=== PATIENT | female | born 2000 | race Caucasian/White ===

== ENCOUNTER 2018-10-31 17:57 | Emergency (ER) | payer SELFPAY ==
[2018-10-31 18:01] VITALS: BP 119/79; PULSE 70; TEMP 98
[2018-10-31 19:11] LABS: COLLECTION METHOD CLEAN CATCH
[2018-10-31 19:17] LABS: MUCOUS Present /lpf; PH 6 (5-8); SQUAMOUS EPITHELIAL 0-2 /hpf; URINE APPEARANCE Clear; URINE BACTERIA Rare /hpf; URINE BILIRUBIN Negative (NEGATIVE); URINE BLOOD 1+ (NEGATIVE); URINE COLOR Amber; URINE GLUCOSE Negative (NEGATIVE); URINE KETONE Negative (NEGATIVE); URINE LEUKOCYTE ESTERASE Negative (NEGATIVE); URINE NITRATE Positive (NEGATIVE); URINE PROTEIN(semi-quant) Negative (NEGATIVE)
[2018-10-31] MEDS ORDERED: OMNICEF 300MG300 MG PO (19:27)
== END 2018-10-31 20:27 | disposition home or self-care (01) ==
LOC: COL.ER 17:57
PROVIDERS: Emergency Medicine
DX: N39.0 Urinary tract infection, site not specified (principal)
CPT/HCPCS: J0696

== ENCOUNTER 2018-11-21 16:14 | Emergency (ER) | payer SELFPAY ==
[~2018-11-21] VITALS: Ht 157.5 cm; Wt 75.3 kg
[~2018-11-21 16:14] MED LIST: OMNICEF 300MG300 MG PO
[2018-11-21 16:21] VITALS: BP 124/74; TEMP 98.2
[2018-11-21 17:09] LABS: BASO % 0.2 % (0.0-2.0); EOS # 0.1 (0.0-0.7); EOS % 1.2 % (0-4.0); GRAN # 6.3 (1.4-6.5); GRAN % 71.1 % (42.2-75.2); HEMATOCRIT 42.5 % (35.0-45.0); HEMOGLOBIN 13.8 g/dl (12.0-15.0); LYMPH # 1.8 (1.2-3.4); LYMPH % 20.8 % (20.0-51.0); MEAN CELL VOLUME 96 fl (80.0-95.0); MEAN CORPUSCULAR HEMOGLOBIN 31 pg (26.0-32.0); MEAN CORPUSCULAR HGB CONC 33 g/dl (33.0-37.0); MEAN PLATELET VOLUME 12.2 fl (7.4-10.4); MONO # 0.6 (0.1-0.6); MONO % 6.5 % (1.7-9.3); PLATELET COUNT 209 K/mm3 (130-400); RED BLOOD COUNT 4.42 M/mm3 (4.10-5.30); REDCELL DISTRIBUTION WIDTH-CV 12.5 % (11.5-14.5)
[2018-11-21 17:23] LABS: ALBUMIN 4.3 gm/dL (3.5-5.0); BILIRUBIN,TOTAL 0.3 mg/dL (0.0-1.0); C-REACTIVE PROTEIN 0.7 mg/dL (0.0-0.9); CALCIUM 9.5 mg/dL (8.4-10.2); CREATININE, serum 0.7 (0.52-1.25); POTASSIUM 3.5 mmol/L (3.4-5.0); TOTAL PROTEIN 7.1 gm/dL (6.4-8.2)
[2018-11-21] MEDS ORDERED: MEDROL 4MG DOSPA4 MG PO (18:11)
[2018-11-21] MEDS ORDERED: ATIVAN 0.50.5 MG/TAB PO (18:20)
[2018-11-21 18:31] VITALS: PULSE 92
== END 2018-11-21 18:32 | disposition home or self-care (01) ==
LOC: COL.ER 16:14
PROVIDERS: Emergency Medicine
DX: R20.2 Paresthesia of skin (principal); M62.838 Other muscle spasm

== ENCOUNTER 2019-03-18 01:23 | Emergency (ER) | payer MEDICAID ==
[~2019-03-18] VITALS: Ht 152.4 cm; Wt 81.8 kg
[~2019-03-18 01:23] MED LIST changes: +ATIVAN 0.50.5 MG/TAB PO; +MEDROL 4MG DOSPA4 MG PO
[2019-03-18 01:30] VITALS: BP 103/66
[2019-03-18] MEDS ORDERED: PRENATAL TABLET PO (01:32)
[2019-03-18 02:02] LABS: BASO % 0.2 % (0.0-2.0); EOS # 0.2 (0.0-0.7); EOS % 2.2 % (0-4.0); GRAN # 7.3 (1.4-6.5); GRAN % 70.1 % (42.2-75.2); HEMATOCRIT 39.8 % (35.0-45.0); HEMOGLOBIN 13.4 g/dl (12.0-15.0); LYMPH # 2.1 (1.2-3.4); LYMPH % 20.2 % (20.0-51.0); MEAN CELL VOLUME 94 fl (80.0-95.0); MEAN CORPUSCULAR HEMOGLOBIN 32 pg (26.0-32.0); MEAN CORPUSCULAR HGB CONC 34 g/dl (33.0-37.0); MEAN PLATELET VOLUME 11.4 fl (7.4-10.4); MONO # 0.7 (0.1-0.6); MONO % 6.9 % (1.7-9.3); PLATELET COUNT 270 K/mm3 (130-400); RED BLOOD COUNT 4.22 M/mm3 (4.10-5.30); REDCELL DISTRIBUTION WIDTH-CV 12.5 % (11.5-14.5)
[2019-03-18 02:20] LABS: ALBUMIN 4.5 gm/dL (3.5-5.0); BILIRUBIN,TOTAL 0.1 mg/dL (0.0-1.0); CALCIUM 9.4 mg/dL (8.4-10.2); CREATININE, serum 0.51 (0.52-1.25); POTASSIUM 3.8 mmol/L (3.4-5.0); TOTAL PROTEIN 7.5 gm/dL (6.4-8.2)
[2019-03-18 02:35] LABS: COLLECTION METHOD CLEAN CATCH
[2019-03-18 02:44] LABS: AMORPHOUS CRYSTAL Present /uL; PH 7 (5-8); SQUAMOUS EPITHELIAL 0-2 /hpf; URINE APPEARANCE Hazy; URINE BACTERIA None Seen /hpf; URINE BILIRUBIN Negative (NEGATIVE); URINE BLOOD Negative (NEGATIVE); URINE COLOR Yellow; URINE GLUCOSE Negative (NEGATIVE); URINE KETONE Negative (NEGATIVE); URINE LEUKOCYTE ESTERASE Negative (NEGATIVE); URINE NITRATE Negative (NEGATIVE); URINE PROTEIN(semi-quant) Negative (NEGATIVE); URINE RBC 0-2 /hpf; URINE UROBILINOGEN Negative (NEGATIVE)
[2019-03-18 04:45] VITALS: PULSE 73
== END 2019-03-18 04:45 | disposition home or self-care (01) ==
LOC: COL.ER 01:23
PROVIDERS: Physician Assistant
DX: O20.0 Threatened abortion (principal); O99.331 Smoking (tobacco) complicating pregnancy, first trimester; F17.210 Nicotine dependence, cigarettes, uncomplicated; Z3A.01 Less than 8 weeks gestation of pregnancy

== ENCOUNTER 2019-03-26 00:35 | Emergency (ER) | payer MEDICAID ==
[~2019-03-26] VITALS: Ht 154.9 cm; Wt 76.0 kg
[~2019-03-26 00:35] MED LIST changes: +PRENATAL TABLET PO
[2019-03-26 00:39] VITALS: BP 125/79; PULSE 87; TEMP 98.9
[2019-03-26 01:39] LABS: BASO % 0.2 % (0.0-2.0); EOS # 0.2 (0.0-0.7); EOS % 2.4 % (0-4.0); GRAN % 71.3 % (42.2-75.2); HEMATOCRIT 41.6 % (35.0-45.0); HEMOGLOBIN 13.6 g/dl (12.0-15.0); LYMPH % 19.8 % (20.0-51.0); MEAN CELL VOLUME 96 fl (80.0-95.0); MEAN CORPUSCULAR HEMOGLOBIN 32 pg (26.0-32.0); MEAN CORPUSCULAR HGB CONC 33 g/dl (33.0-37.0); MEAN PLATELET VOLUME 11.3 fl (7.4-10.4); MONO # 0.6 (0.1-0.6); PLATELET COUNT 228 K/mm3 (130-400); RED BLOOD COUNT 4.32 M/mm3 (4.10-5.30); REDCELL DISTRIBUTION WIDTH-CV 12.3 % (11.5-14.5)
[2019-03-26 02:25] LABS: COLLECTION METHOD CLEAN CATCH
[2019-03-26 02:30] LABS: PH 6 (5-8); SQUAMOUS EPITHELIAL 0-2 /hpf; URINE APPEARANCE Clear; URINE BACTERIA None Seen /hpf; URINE BILIRUBIN Negative (NEGATIVE); URINE BLOOD Negative (NEGATIVE); URINE COLOR Yellow; URINE GLUCOSE Negative (NEGATIVE); URINE KETONE Negative (NEGATIVE); URINE LEUKOCYTE ESTERASE Negative (NEGATIVE); URINE NITRATE Negative (NEGATIVE); URINE PROTEIN(semi-quant) Negative (NEGATIVE); URINE RBC 0-2 /hpf; URINE UROBILINOGEN Negative (NEGATIVE)
== END 2019-03-26 03:40 | disposition home or self-care (01) ==
LOC: COL.ER 00:35
PROVIDERS: Nurse Practitioner
DX: O20.0 Threatened abortion (principal); Z87.59 Personal history of other complications of pregnancy, childbirth and the puerperium

== ENCOUNTER 2019-03-27 19:29 | Emergency (ER) | payer MEDICAID ==
[~2019-03-27] VITALS: Wt 73.2 kg
[2019-03-27 20:31] LABS: BASO % 0.1 % (0.0-2.0); EOS # 0.3 (0.0-0.7); EOS % 2.7 % (0-4.0); GRAN # 8.1 (1.4-6.5); GRAN % 70.9 % (42.2-75.2); HEMATOCRIT 42.2 % (35.0-45.0); HEMOGLOBIN 13.9 g/dl (12.0-15.0); LYMPH # 2.3 (1.2-3.4); LYMPH % 20.1 % (20.0-51.0); MEAN CELL VOLUME 95 fl (80.0-95.0); MEAN CORPUSCULAR HEMOGLOBIN 31 pg (26.0-32.0); MEAN CORPUSCULAR HGB CONC 33 g/dl (33.0-37.0); MEAN PLATELET VOLUME 11.6 fl (7.4-10.4); MONO # 0.7 (0.1-0.6); MONO % 5.9 % (1.7-9.3); PLATELET COUNT 235 K/mm3 (130-400); RED BLOOD COUNT 4.43 M/mm3 (4.10-5.30); REDCELL DISTRIBUTION WIDTH-CV 12.1 % (11.5-14.5)
[2019-03-27 21:38] VITALS: BP 128/79; PULSE 76; TEMP 98.4
== END 2019-03-27 21:45 | disposition home or self-care (01) ==
LOC: COL.ER 19:29
PROVIDERS: Emergency Medicine
DX: O03.9 Complete or unspecified spontaneous abortion without complication (principal); Z87.891 Personal history of nicotine dependence

== ENCOUNTER 2019-03-28 00:10 | Emergency (ER) | payer MEDICAID ==
[2019-03-28 00:19] VITALS: TEMP 98.2
[2019-03-28 01:23] VITALS: BP 120/82; PULSE 67
== END 2019-03-28 01:23 | disposition home or self-care (01) ==
LOC: COL.ER 00:10
DX: O03.4 Incomplete spontaneous abortion without complication (principal)

== ENCOUNTER 2021-03-26 08:50 | Outpatient (CLI) | payer MEDICAID ==
[2021-03-26] VITALS (7 sets, daily range): BP systolic 97–139; BP diastolic 51–86; PULSE 78–92; TEMP 97.7–98.2
[~2021-03-26] VITALS: Ht 154.9 cm; Wt 92.3 kg
--- NOTE | 2021-03-26 09:00 | NUR ---
0900-Patient arrives on unit via wheelchair with complaint of contractions since 0500. Denies vaginal bleeding or decreased movement. Does report some type of fluid like discharge. Friend and wildlife removal specialist with patient. Amnitest neg and SVE 3 and posterior. Updated on plan of care and Assessment complete. 914-Dr. Jose on unit. Reviewed FHR monitor with MD and orders for labor check recieved. 1021-Patient now 2 with bloody show on exam glove. Dr. Jose notified. Orders to have patient ambualte and recheck in one hour. Patient off EFM and ambulates hallway.
--- NOTE | 2021-03-26 11:28 | NUR ---
1128-Patient back on EFM. Exam unchanged. Updated MD and recieved orders to allow patient to eat and recheck in 2 hours or sooner if needed.
--- NOTE | 2021-03-26 15:34 | NUR ---
1258-Off EFM ambulates in room. 1354-Back on EFM. SVE unchanged. Updated Dr. Jose and discharge orders recieved. 1422-Reviewed dishcarge instructions. OFF EFM. 1440-Ambulatory off unit with significant other and friend.
== END 2021-03-26 14:40 | disposition home or self-care (01) ==
LOC: LDRO 08:50 → LDR 09:27 → LDRO 14:40 → LDR 14:40
DX: O62.9 Abnormality of forces of labor, unspecified (principal); Z3A.37 37 weeks gestation of pregnancy
CPT/HCPCS: OP

== ENCOUNTER 2021-03-26 22:53 | Outpatient (CLI) | payer MEDICAID ==
[~2021-03-26] VITALS: Ht 154.9 cm; Wt 92.3 kg
--- NOTE | 2021-03-26 23:08 | NUR ---
EFM AND TOCO APPLIED AT THIS TIME
[2021-03-26 23:30] VITALS: BP 133/71; PULSE 91; TEMP 98.4
--- NOTE | 2021-03-26 23:55 | NUR ---
PLAN OF CARE DISCUSSED AND PT VERVALIZED AN UNDERSTANDING. PT RESTING IN BED, ICE WATER GIVEN, PT DENIES FURTHER NEEDS. CALL LIGHT LEEROY REACH
[2021-03-27] VITALS: BP 132/82; PULSE 100
--- NOTE | 2021-03-27 00:20 | NUR ---
VISIBLE BREAKS ARE OBSERVED IN FHT TRACING. RN IS AT BEDSIDE TO ADJUST EFM AFTER MATERNAL POSITION CHANGE. MATERAL COINCIDENCE IS OBSERVED DURING MATERNAL POSITION CHANGE PER PULSE OX.
[2021-03-27 00:45] VITALS: BP 139/87; PULSE 75
--- NOTE | 2021-03-27 00:50 | NUR ---
DISCHARGE INSTRUCTIONS REVIEWED WITH EARLY LABOR INSTRUCTIONS AN PT VERBALIZED AN UNDERSTANDING. PT DENIES FURTHER QUESTIONS AT THIS TIME. PT GIVEN COPY OF DISCHARGE INSTRUCTIONS
--- NOTE | 2021-03-27 00:55 | NUR ---
PT DISCHARGED TO HOME IN STABLE UNDELIVERED CONDITION. PT AMBULATED OFF UNIT WITH FRIEND AT THIS TIME.
== END 2021-03-27 00:55 | disposition home or self-care (01) ==
LOC: LDR 22:53 → LDRO 22:53 → LDR 23:14 → LDRO 03-27 00:55
DX: O62.9 Abnormality of forces of labor, unspecified (principal); Z3A.39 39 weeks gestation of pregnancy
CPT/HCPCS: OP

== ENCOUNTER 2021-03-27 13:23 | Inpatient (IN) | payer MEDICAID ==
[2021-03-27] VITALS (25 sets, daily range): BP systolic 109–165; BP diastolic 56–95; PULSE 16–131; TEMP 97.7–99.7
[~2021-03-27] VITALS: Ht 154.9 cm; Wt 92.3 kg
--- NOTE | 2021-03-27 13:25 | NUR ---
1325-39.2 week G3L0 Ambulatory to LR 4 with complaint of contractions. She was seen on unit twice in the last 24 hours for a labor check. She says she tried tylenol and rest and they picked up from every 10-12 min to 5-6 min through the night. She reports good movement and denies LOF. Patient assisted into gown and social worker aide line called for admission assistance. Her cervix was checked /-2. GILBERTO.
[2021-03-27 15:28] LABS: BASO % 0.3 % (0.0-2.0); EOS % 0.2 % (0-4.0); GRAN # 10.1 K/mm3 (1.4-6.5); GRAN % 82.1 % (42.2-75.2); HEMATOCRIT 44.8 % (37.0-47.0); HEMOGLOBIN 14.8 g/dl (12.5-16.0); LYMPH # 1.5 K/mm3 (1.2-3.4); LYMPH % 12.2 % (20.0-51.0); MEAN CELL VOLUME 94 fl (80.0-100.0); MEAN CORPUSCULAR HEMOGLOBIN 31 pg (27.0-31.0); MEAN CORPUSCULAR HGB CONC 33 g/dl (33.0-37.0); MONO # 0.6 K/mm3 (0.1-0.6); MONO % 4.9 % (1.7-9.3); PLATELET COUNT 209 K/mm3 (130-400); RED BLOOD COUNT 4.77 M/mm3 (4.10-5.30); REDCELL DISTRIBUTION WIDTH-CV 14.3 % (11.5-14.5)
[2021-03-27 15:43] LABS: ALBUMIN 3.1 gm/dL (3.5-5.0); BILIRUBIN,TOTAL 0.6 mg/dL (0.2-1.2); CALCIUM 9.5 mg/dL (8.4-10.2); CREATININE, serum 0.62 mg/dL (0.57-1.11); TOTAL PROTEIN 7.3 gm/dL (6.2-8.1)
--- NOTE | 2021-03-27 16:05 | NUR ---
1605-Dr. Hartley on unit. In to see patient and review plan of care. SVE /-1 per MD. AROM clear fluid.
--- NOTE | 2021-03-27 16:30 | NUR ---
1630-FHR decels down to 80 bpm. Repositoned LL and cut pitocin down to 2mu. 1650-Dr. Hartley notified of deep decels and decrease in pitocin. reviews FHR monitor and gives order to leave pitocin off. 1705-FSE placed by this RN. 1730-Pitocin resumed at 2mu
--- NOTE | 2021-03-27 18:48 | NUR ---
174-Intermittent late decel, Repositoned RL with peanut ball. 1804-Dr. Hartley updated on FHR monitor. Order to continue to increase pitocin, see MD notification. 1814-Reported off to SABINO Garcia
--- NOTE | 2021-03-27 19:48 | NUR ---
FHT: 191: DIFFICULTY TRACING CTX; VARIABLE NOTED. UNSURE IF W/ CTX OR NOT.
--- NOTE | 2021-03-27 20:14 | NUR ---
2003: RN CALLED DR. FRANCOIS TO UPDATE HIM (SEE PHYSICIAN NOTIFICATION) DR. FRANCOIS AWARE OF FHT STRIP, ACTIVELY PULLING UP ON COMPUTER AT HOME WITH RN ON PHONE. CONTINUE WITH CURRENT PLAN PER DR. FRANCOIS.
--- NOTE | 2021-03-27 20:57 | NUR ---
2044: RN TO LUNCH. GAVE REPORT TO SABINO SALOMON. 2056: RN RESUMES CARE OF PT
--- NOTE | 2021-03-27 22:43 | NUR ---
REPORT GIVEN TO SABINO MONTEZ. HER TO START PUSHING WITH PT PER DR. FRANCOIS
--- NOTE | 2021-03-27 22:50 | NUR ---
2250- THIS RN TO LABOR TO TAKE OVER CARE OF LABORING PATIENT. THIS RN TO BEDSIDE TO DISCUSS WITH PATIENT, WITH THE HELP OF LEARNING DESIGN SPECIALIST, THAT WE ARE GOING TO START PUSHING AND WHAT THAT LOOKS LIKE. PATIENT VERBALIZED UNDERSTANDING THROUGH LEARNING DESIGN SPECIALIST. 2258- FIRST PRACTICE PUSH WITH PATIENT. THIS RN REMAINS AT BEDSIDE DURING THIS TIME AND PUSHING WITH PATIENTS. 2300- PROVIDER GAVE VERBAL ORDER TO START PITOCIN DURING PUSHING CONTRACTIONS AT SPACED OUT. 2302- PITOCIN TURNED ON AT 2MU/HR. 2313- ROGERS REMOVED WITH 800ML OF OUTPUT NOTED. 2330- THIS RN CALLED FOR PROVIDER AND NURSERY STAFF TO COME INTO ROOM FOR DELIVERY. 2332- PROVIDER AT BEDSIDE AND ROOM BEING SET UP FOR DELIVER. NURSERY AT BEDSIDE AT THIS TIME TOO. 2337- OF VIABLE MALE . PLACED TO MOTHERS ABDOMEN WHERE NURSERY NURSE ASSUMES CARE AT THIS TIME. PITOCIN TURNED OFF AT THIS TIME. 2340- OF PLACENTA. FUNDUS MASSAGED TO FIRM BY THIS RN WITH SMALL AMOUNT OF LOCHIA AND CLOTS NOTED. PITOCIN TURNED ON PER PROTOCOL AT 333ML/HR. PROVIDER NOTED 2ND DEGREE TEAR AND REPAIRED TEAR. EBL NOTED TO BE 200 BY PROVIDER 2350- REPAIRS FINISHED, FUNDUS FIRM, VITALS STABLE. PATIENT AND ROOM CLEANED UP AND PUT BACK TOGETHER. RECOVERY STARTED.
[2021-03-28] VITALS (11 sets, daily range): BP systolic 105–150; BP diastolic 55–85; PULSE 73–120; TEMP 97.8–98.9
--- NOTE | 2021-03-28 08:03 | NUR ---
0730 PATIENT CALLED OUT FOR ASSISTANCE TO BATHROOM. PT AMBULATED INDEPENDENTLY TO TOILET. PAD SATURATED. PATIENT UNABLE TO URINATE AT THIS TIME. PERICARE DONE. NEW MESH UNDERWEAR, PAD WITH ICE PACK ON. PATIENT AMBULATED BACK TO BED. VSS. FUNDUS FIRM. SMALL AMOUNT OF FLOW WHEN PUSHING ON FUNDUS. NO CLOTS NOTED. PATIENT DENIES HEADACHES, DIZZINESS. ENCOURAGED PATIENT TO DRINK FLUIDS. WATER JUG REFRESHED. APPLE JUICE PROVIDED. HELPED PATIENT AND FOB ORDER BREAKFAST. 0750 MOTHER REQUESTING A BOTTLE FOR INFANT STATING "NO MILK". DISCUSSED WITH MOTHER THE IMPORATANCE OF FEEDING BABY AT THE BREAST BEFORE OFFERING FORMULA TO HELP WITH MILK PRODUCTION. MOTHER AGREES WITH PLAN. RN ASSISTS TO LATCH ON L BREAST. GOOD LATCH NOTED. MOTHER INSTRUCTED TO USE CALL LIGHT TO ASK FOR HELP IF NEEDED.
--- NOTE | 2021-03-28 09:24 | NUR ---
0830 PT CALLED OUT TO HAVE RN CHECK LEFT SIDE LATCH FOR BABY . MOTRIN AND STOOL SOFTNER GIVEN AT THIS TIME. ONLINE PROJECT MANAGER USED FOR MEDICATION EDUCATION. EDUCATION ON APPROPRIATE AMOUNT OF VAGINAL BLEEDING AND CLOT SIZES. 0845 PT NOTIFIES NURSE AT THIS TIME BLEEDING IS HAPPENING. RN CHECKED PRESSED ON FUNDUS AT THIS TIME AND EXPRESSED A PALM SIZED CLOT. NO FURTHER FREE FLOW WITH FUNDAL MASSAGE. NYLON MACHINE OPERATOR ZAHEER, NOTIFIED AT THIS TIME. PATIENT ASKS TO GET UP TO RESTROOM. AMBULATED INDEPENDENTLY TO TOILET. UNABLE TO VOID. PERICARE PROVIDED. PATIENT AMBULATES BACK TO BED. PATIENT BEGINS TO EAT BREAKFAST. 0900 DR. GRIFFITH NOTIFIED BY TELEPHONE. UPDATED GIVEN. ORDERS TO GIVE 0.2MG METHERGINE PO NOW. H&H ORDERED. DR. GRIFFITH REPORTS HE WILL BE OVER TO SEE PATIENT. [address] GRIFFITH AT BEDSIDE ASSESSING PATIENT. WILL NOTIFIY DR. GRIFFITH OF H&H WHEN RESULTS ARE BACK.
[2021-03-28 09:35] LABS: HEMATOCRIT 30.1 % (37.0-47.0); HEMOGLOBIN 10.2 g/dl (12.5-16.0)
--- NOTE | 2021-03-28 11:25 | NUR ---
Initial visit attempt; Nurse with patient, Supervisor Rose Grading left card of congratulations and God's blessings along with information regarding the availability of spiritual care at our hospital.
--- NOTE | 2021-03-28 14:48 | NUR ---
1330 PT UP TO BATHROOM. VOIDED 500 CC'S. MINIMAL BLEEDING. PT AMBULATED BACK TO BED INDEPENDENTLY.
[2021-03-29 07:00] VITALS: BP 114/56; PULSE 85; TEMP 98.3
[2021-03-29] MEDS ORDERED: IBU800 M1 PO (08:20)
--- NOTE | 2021-03-29 09:45 | NUR ---
Initial visit; Parents thanked Smelter Charger for offering congratulations and God's blessings for the of their son. Smelter Charger thanked family for choosing [facility].
--- NOTE | 2021-03-29 15:00 | NUR ---
THIS RN DISCHARGED MOM AT THIS TIME. RN IN ROOM WITH [employer] TRANSLATE TO THOROUGHLY EXLPAIN DISCHARGE ORDERS. THIS RN PRINTED MULTIPLE EDUCATION SHEETS (CARE OF , , CARE AFTER VAGINAL ) ALL IN ITALIAN TO HELP GUIDE DISCHARGE AND HELP ANSWER ANY QUESTIONS. THIS RN BROUGHT BABY TO NURSERY WHILE PARENTS LEAVE TO GO HOME AND GET PRESCRIPTIONS PICKED UP. THEY STATE THEY WILL BE BACK TONIGHT AROUND 9PM. THIS RN ENCOURAGED THEM TO CALL WITH ANY QUESTIONS.
== END 2021-03-29 15:00 | disposition home or self-care (01) | DRG 769 ==
LOC: LDRO 13:23 → LDR 13:33 → LDRO 15:00 → OB 15:01 → LDR 15:01 → OB 03-28 03:00
PROVIDERS: Obstetrics & Gynecology; ADMIT Obstetrics & Gynecology
PROC: 10E0XZZ Delivery of Products of Conception, External Approach (ICD-10-PCS; principal; 2021-03-27)
PROC: 0KQM0ZZ Repair Perineum Muscle, Open Approach (ICD-10-PCS; 2021-03-27)
DX: O70.1 Second degree perineal laceration during delivery (principal); Z3A.39 39 weeks gestation of pregnancy; Z73.0 Burn-out
CPT/HCPCS: J1200; J2590; J7120